=== PATIENT | female | born 1955 | race Caucasian/White ===

== ENCOUNTER 2021-02-09 10:39 | Inpatient (IN) | payer MEDICARE ==
[~2021-02-09] VITALS: Ht 160 cm; Wt 56.9 kg
[2021-02-09] MEDS ORDERED: HYDR1TAB94 PO (11:04)
[2021-02-09] MEDS ORDERED: MIRT15 PO (11:05)
[2021-02-09] MEDS ORDERED: MOBIC15 MG PO (11:05)
[2021-02-09] MEDS ORDERED: POTCHL20ER PO (11:06)
[2021-02-09 11:33] LABS: BASOPHILS ABSOLUTE AUTO 0.08 K/mm3 (0.00-0.23); BASOPHILS PERCENT AUTO 0 % (0-2); EOSINOPHILS PERCENT AUTO 0 % (0-6); Hematocrit 47.8 % (33.0-51.0); Hemoglobin 16.1 g/dL (11.5-16.0); IMMATURE GRAN ABSOLUTE AUTO 0.15 K/mm3 (0.00-0.10); IMMATURE GRAN PERCENT AUTO 1 % (0-1); LYMPHOCYTES PERCENT AUTO 3 % (21-46); MONOCYTES ABSOLUTE AUTO 0.67 K/mm3 (0.16-1.47); MONOCYTES PERCENT AUTO 4 % (4-13); Mean Corpuscular HGB 29.9 pg (26.0-34.0); Mean Corpuscular HGB Conc 33.7 g/dL (31.5-36.5); Mean Corpuscular Volume 89 fL (80-100); Mean Platelet Volume 10.4 fL (9.1-12.4); NEUTROPHILS ABSOLUTE AUTO 17.49 K/mm3 (1.96-9.15); NEUTROPHILS PERCENT AUTO 93 % (41-73); Platelet Count 237 K/mm3 (150-400); RDW Coefficient Variation 16.8 % (11.7-14.2); RDW Standard Deviation 54.2 fL (35.1-46.3); Red Blood Cell Count 5.39 M/mm3 (3.80-5.20); White Blood Cell Count 18.89 K/mm3 (4.00-11.30)
[2021-02-09 11:57] LABS: Alanine Aminotransfer (ALT/SGP 77 U/L (12-78); Albumin, Blood 2.8 g/dL (3.4-5.0); Albumin/Globulin Ratio 0.9 (0.8-1.8); Alk Phos 81 U/L (50-136); Anion Gap 6 mmol/L (6-16); Aspartate Aminotrans (AST/SGOT 30 U/L (12-37); Bilirubin, Total 0.9 mg/dL (0.1-1.0); Blood Urea Nitrogen 20 mg/dL (8-24); Bun/Creatinine Ratio 64.5 (12.0-20.0); CO2, Blood 28 mmol/L (21-32); Calcium, Blood 8.2 mg/dL (8.5-10.1); Chloride, Blood 106 mmol/L (98-108); Creatinine, Blood 0.31 mg/dL (0.40-1.00); Glomerular Filtration Rate >60 (60-); Glucose, Blood 204 mg/dL (70-99); Potassium, Blood 3.4 mmol/L (3.5-5.5); Sodium, Blood 140 mmol/L (136-145); Total Protein, Blood 5.8 g/dL (6.4-8.2); Troponin I 0.026 ng/mL (0.000-0.040)
[2021-02-09 13:39] LABS: Source, Urine Voided
[2021-02-09 13:49] LABS: Appearance, Urine Clear (Clear); Blood, Urine 1+ (Neg); Color, Urine Yellow (P-Yellow); Glucose Qualitative, Urine 4+ (Neg); Ketones, Urine 1+ (Neg); Leukocyte Esterase, Urine 1+ (Neg); Nitrite, Urine Neg (Neg); Protein, Urine 3+ (Neg); Specific Gravity, Urine 1.015 (1.003-1.022); Urobilinogen, Urine 2+ (Normal)
[2021-02-09 13:57] LABS: Bilirubin, Urine 1+ (Neg)
[2021-02-09 13:59] LABS: Bacteria Many /hpf; Red Blood Cells, Urine 0-2 /hpf (0-2); Squamous Epithelial Cells Few /hpf (Few)
[2021-02-09] MEDS ORDERED: MIRALAX17 GM PO (14:14)
[2021-02-09] MEDS ORDERED: METAMUCIL POWD575 GM PO (14:15)
[2021-02-09 15:58] LABS: SARS-Cov-2 (COVID-19) PCR, MMC NEGATIVE (NEGATIVE)
--- NOTE | 2021-02-09 19:25 | NUR ---
ASSUMPTION OF CARE PT TX TO ICU FROM ER @ 1900, MOVED TO ICU BED VIA SLIDER SHEET. PT A&OX4. C/O MODERATE ABDOMINAL PAIN WHICH IS TOLERABLE AT THIS TIME. LS DIMINISHED, ON 2LPM VIA NC UPON ADMIT c SATS >90%. FREQUENT UNPRODUCTIVE COUGHS. ABDOMEN MILDLY DISTENDED. EDEMA TO BLE, PT STATES THIS IS NOT NORMAL. A-FIB ON THE MONITOR, CARDIZEM GTT INFUSING @ 10MG/HR c GOAL HR OF 100BPM. PT VERY WEAK, STATES SHE NORMALLY WALKS/ MOVES WITHOUT ASSISTANCE. UNABLE TO GET UP TO BEDSIDE COMMODE, UTILIZING BEDPAN. PT NPO BUT FREQUENTLY REQUESTING WATER AND FOOD. CALL LIGHT WITHIN REACH.
--- NOTE | 2021-02-10 02:02 | NUR ---
UPDATE PTS PAIN IS CONTROLLED c PRN FENTANYL. ABLE TO STAND AND TRANSFER TO BESIDE COMMODE FOR BM. TOLERATING SLOW MOVEMENTS. A-FIB CONTINUES, NO CHANGES IN CARDIZEM GTT. WHILE SLEEPING PTS SATS DROP TO MID 80'S, PLACED ON OXIMYZER @ 10LPM c O2 SATS >95%. WHEN SATS MAINTAIN >95% c NC @ 2-4LPM.
[2021-02-10 03:23] LABS: BASOPHILS ABSOLUTE AUTO 0.04 K/mm3 (0.00-0.23); BASOPHILS PERCENT AUTO 0 % (0-2); Hematocrit 43.6 % (33.0-51.0); Hemoglobin 14.3 g/dL (11.5-16.0); LYMPHOCYTES ABSOLUTE AUTO 0.52 K/mm3 (0.84-5.20); LYMPHOCYTES PERCENT AUTO 3 % (21-46); MONOCYTES ABSOLUTE AUTO 0.75 K/mm3 (0.16-1.47); MONOCYTES PERCENT AUTO 4 % (4-13); Mean Corpuscular HGB Conc 32.8 g/dL (31.5-36.5); Mean Corpuscular Volume 91 fL (80-100); Mean Platelet Volume 10.3 fL (9.1-12.4); Platelet Count 173 K/mm3 (150-400); RDW Coefficient Variation 17.1 % (11.7-14.2); RDW Standard Deviation 57.3 fL (35.1-46.3); Red Blood Cell Count 4.77 M/mm3 (3.80-5.20); White Blood Cell Count 18.77 K/mm3 (4.00-11.30)
[2021-02-10 03:33] LABS: EOSINOPHILS PERCENT AUTO 0 % (0-6); IMMATURE GRAN ABSOLUTE AUTO 0.15 K/mm3 (0.00-0.10); IMMATURE GRAN PERCENT AUTO 1 % (0-1); NEUTROPHILS ABSOLUTE AUTO 17.31 K/mm3 (1.96-9.15); NEUTROPHILS PERCENT AUTO 92 % (41-73)
[2021-02-10 03:45] LABS: Alanine Aminotransfer (ALT/SGP 64 U/L (12-78); Albumin, Blood 2.6 g/dL (3.4-5.0); Albumin/Globulin Ratio 0.8 (0.8-1.8); Alk Phos 75 U/L (50-136); Anion Gap 1 mmol/L (6-16); Aspartate Aminotrans (AST/SGOT 24 U/L (12-37); Bilirubin, Total 0.7 mg/dL (0.1-1.0); Blood Urea Nitrogen 19 mg/dL (8-24); Bun/Creatinine Ratio 50.5 (12.0-20.0); CO2, Blood 33 mmol/L (21-32); Calcium, Blood 8.2 mg/dL (8.5-10.1); Chloride, Blood 109 mmol/L (98-108); Creatinine, Blood 0.38 mg/dL (0.40-1.00); Globulin, Blood 3.1 g/dL (2.2-4.0); Glomerular Filtration Rate >60 (60-); Glucose, Blood 208 mg/dL (70-99); Magnesium, Blood 1.7 mg/dL (1.6-2.4); Phosphorus, Blood 3.1 mg/dL (2.5-4.9); Potassium, Blood 3.9 mmol/L (3.5-5.5); Sodium, Blood 143 mmol/L (136-145); Total Protein, Blood 5.7 g/dL (6.4-8.2)
--- NOTE | 2021-02-10 06:13 | NUR ---
SHIFT SUMMARY PT A&OX4. OCCASIONAL NON-PRODUCTIVE COUGHING. OXYGEN REMAINS ABOVE 90%, SWAPPING BETWEEN NC @ 2-4LPM AND OXIMYZER @ 8-10LPM WHILE PT IS SLEEPING. A-FIB CONTINUES, RATE REMAINS ~100BPM c CARDIZEM @ 5MG/HR. PT REPORTS NO CHANGES IN ABDOMINAL PAIN, BUT PAIN IS CONTINUOUS OF 5-8/10, MEDICATED c PRN FENTANYL. BP STABLE. PT FREQUENTLY REQUESTING FOOD AND WATER, REMAINS NPO, PROVIDED ORAL SWAB WHEN REQUESTED. NO OTHER CHANGES, REPORT TO ONCOMING NURSE.
--- NOTE | 2021-02-10 08:00 | NUR ---
pt is agitated about lines and not being able to eat, wants ice chips, this was given, Dr. Curry in to see her early this am, said ice chips ok, and will let bowels rest at this time, a/ox3, cooperative with care, follows commands well, states pain is ok, but abd is very tender, lungs are course, dim in left base, resp even and unlabored, harsh wet cough, she reports she can't bring it up, currently on 4 liters 02 via oxymizer, as she needs 10 while sleeping, hrirr, heart moniotor in place running afib per monitor, see strip, 2+ edema noted to b/l le, scuds in place, ppp+2, cap refill <3sec, vs stable, afebrile, iv sites are clear and patent, one on right fa is tender when flushed, btx4, abd round soft tender, all four quads, voids without diff, skin c/w/d, maew, mackenzie, call light in reach.
--- NOTE | 2021-02-10 11:04 | NUR ---
notified Dr. Vail of + B.C[facility] no new orders.
--- NOTE | 2021-02-10 11:57 | NUR ---
Echocardiogram completed.
--- NOTE | 2021-02-10 17:57 | NUR ---
pt is continuing to ask about eating and how long until we know. offered encouragement, encouraged her to go very slow with ice chips, no further changes this shift, call light in reach.
--- NOTE | 2021-02-10 21:59 | NUR ---
ASSUMED CARE OF PATIENT AT APPROXIMATELY 1905 FROM MICHAEL Song RN. PATIENT IS VERY ANXIOUS; IRRITABLE AT TIMES. PATIENT REPORTS PAIN IN HER ABDOMEN AND BACK; MEDICATED PER EMAR WITH GOOD RESULTS. PATIENT ONE ASSIST TO BEDSIDE COMMODE OR USES BEDPAN; FREQUENCY DUE TO IV LASIX GIVEN EARLIER TODAY PER DAYSHIFT. AFIB 90-130'S; CARDIZEM GTT 5-10; CURRENTLY 5; WITH AVERAGE IN 90'S; NPO AT THIS TIME EXCEPT FOR ICE CHIPS; PATIENT IRRITABLE ABOUT NOT EATING. OXYGEN SATURATION ABOVE 90% ON 10LPM VIA OXYMIZER; NONPRODUCTIVE COUGH; REPORTS SHE CANT BRING ANYTHING UP. PATIENT DENIES NUMBNESS, TINGLING, DIZZINESS OR NAUSEA. 2 PIV.
[2021-02-11 04:17] LABS: BASOPHILS ABSOLUTE AUTO 0.04 K/mm3 (0.00-0.23); BASOPHILS PERCENT AUTO 0 % (0-2); EOSINOPHILS ABSOLUTE AUTO 0.01 K/mm3 (0.00-0.68); EOSINOPHILS PERCENT AUTO 0 % (0-6); Hematocrit 43.7 % (33.0-51.0); Hemoglobin 14.3 g/dL (11.5-16.0); IMMATURE GRAN PERCENT AUTO 1 % (0-1); LYMPHOCYTES ABSOLUTE AUTO 0.59 K/mm3 (0.84-5.20); LYMPHOCYTES PERCENT AUTO 4 % (21-46); MONOCYTES ABSOLUTE AUTO 0.84 K/mm3 (0.16-1.47); MONOCYTES PERCENT AUTO 6 % (4-13); Mean Corpuscular HGB 29.4 pg (26.0-34.0); Mean Corpuscular HGB Conc 32.7 g/dL (31.5-36.5); Mean Corpuscular Volume 90 fL (80-100); Mean Platelet Volume 10.3 fL (9.1-12.4); NEUTROPHILS ABSOLUTE AUTO 13.34 K/mm3 (1.96-9.15); NEUTROPHILS PERCENT AUTO 89 % (41-73); Platelet Count 198 K/mm3 (150-400); RDW Coefficient Variation 16.4 % (11.7-14.2); Red Blood Cell Count 4.86 M/mm3 (3.80-5.20); White Blood Cell Count 15.02 K/mm3 (4.00-11.30)
[2021-02-11 04:38] LABS: Anion Gap 6 mmol/L (6-16); Blood Urea Nitrogen 19 mg/dL (8-24); Bun/Creatinine Ratio 53.1 (12.0-20.0); CO2, Blood 33 mmol/L (21-32); Chloride, Blood 104 mmol/L (98-108); Creatinine, Blood 0.36 mg/dL (0.40-1.00); Glomerular Filtration Rate >60 (60-); Glucose, Blood 174 mg/dL (70-99); Potassium, Blood 2.4 mmol/L (3.5-5.5); Sodium, Blood 143 mmol/L (136-145)
--- NOTE | 2021-02-11 06:09 | NUR ---
CALLED DR. BUTLER REGARDING POTASSIUM CRITICALLY LOW AT 2.4; ORDERS FOR IV POTASSIUM; CURRENTLY INFUSING. PATIENT SLEPT ABOUT SEVEN HOURS LAST NIGHT. INCONTINENT OF STOOL ONCE AND UP TO URINATE OR USED BEDPAN FREQUENTLY. CARDIZEM 5-10 MG/HR ALL NIGHT.
--- NOTE | 2021-02-11 16:44 | NUR ---
PT SUMMARY: PT CONTINUES TO C/O OF ABD PAIN, PAIN CONTROLLED VIA IV FENTANYL. DR MCKEON PLAN TO CONTINUE MEDICAL MANAGEMENT AND BOWEL REST AT THIS TIME, PT HAD EPISODES OF SMALL LOOSE BMS, PT REMAINS ALERT AND ORIENTED, GETS IRRITATED OFTEN TIMES, REFUSES TO GET BP DONE BEFORE THE END OF THE SHIFT AND SWAB FOR RESPI PANEL. VITALS BP SYSTOLIC 120'S, HR AFIB CARDIZEM AND METOPROLOL PO STARTED CARDIZEM GTT OFF RATE STAYS ON THE 110'S, SPO2 ABOVE 93% ON 9L OF O2 VIA OXYMIZER, AFEBRILE. PT CONINUES ON IV ABO, SBA FRO TRANSFERS. SON WAS IN TO VISIT AND WAS ABLE TO HAVE DISCUSSION WITH DR MCKEON ABOUT THE PLAN FOR THE PT. PT IN BED AT THIS TIME RESTING. CALL LIGHTS WITHIN REACH WILL HOMAR
[2021-02-11 19:19] LABS: Adenovirus Not Detected (NOT DETECT); Bordetella pertussis Not Detected (NOT DETECT); Chlamydophila pneumoniae Not Detected (NOT DETECT); Coronavirus 229E Not Detected (NOT DETECT); Coronavirus HKU1 Not Detected (NOT DETECT); Coronavirus NL63 Not Detected (NOT DETECT); Coronavirus OC43 Not Detected (NOT DETECT); Human Metapneumovirus Not Detected (NOT DETECT); Human Rhinovirus/Enterovirus Not Detected (NOT DETECT); Influenza A/2009-H1 Not Detected (NOT DETECT); Influenza A/H1 Not Detected (NOT DETECT); Influenza A/H3 Not Detected (NOT DETECT); Influenza B Not Detected (NOT DETECT); Mycoplasma pneumoniae Not Detected (NOT DETECT); Parainfluenza Virus 1 Not Detected (NOT DETECT); Parainfluenza Virus 2 Not Detected (NOT DETECT); Parainfluenza Virus 3 Not Detected (NOT DETECT); Parainfluenza Virus 4 Not Detected (NOT DETECT); Respiratory Syncytial Virus Not Detected (NOT DETECT); SARS-Cov-2 (COVID-19), BioFire Not Detected (NOT DETECT)
--- NOTE | 2021-02-11 23:28 | NUR ---
PT HAS FREQUENT URINATION WELL WATERY STOOLS. PT REPORTS ABDOMINAL PAIN. PT IS A BIT AGITATED AND WANTS TO BE UNDISTURBED UNTIL SHE NEEDS ASSISTANCE.
[2021-02-12 04:08] LABS: Hemoglobin 15.8 g/dL (11.5-16.0); Mean Corpuscular HGB 30.2 pg (26.0-34.0); Mean Corpuscular HGB Conc 33.6 g/dL (31.5-36.5); Mean Corpuscular Volume 90 fL (80-100); Mean Platelet Volume 10.5 fL (9.1-12.4); Platelet Count 214 K/mm3 (150-400); RDW Standard Deviation 52.7 fL (35.1-46.3); Red Blood Cell Count 5.23 M/mm3 (3.80-5.20); White Blood Cell Count 18.16 K/mm3 (4.00-11.30)
[2021-02-12 04:26] LABS: Anion Gap 8 mmol/L (6-16); Blood Urea Nitrogen 14 mg/dL (8-24); Bun/Creatinine Ratio 46.4 (12.0-20.0); CO2, Blood 33 mmol/L (21-32); Calcium, Blood 7.7 mg/dL (8.5-10.1); Chloride, Blood 100 mmol/L (98-108); Glomerular Filtration Rate >60 (60-); Glucose, Blood 172 mg/dL (70-99); Potassium, Blood 2.7 mmol/L (3.5-5.5); Sodium, Blood 141 mmol/L (136-145)
--- NOTE | 2021-02-12 04:39 | NUR ---
SHIFT SUMMARY PT IS ALERT AND ORIENTED X4. PT SEEMS TO BE AGITATED AT TIMES, STS THAT SHE CANNOT GET SLEEP DUE TO BEEPING AND CARE. PT HAS BEEN INFUSING FLUIDS ALL NIGHT AND THERE WAS NEED TO GO INTO THE ROOM. PT HAS ALSO HAD SEVERAL WATERY STOOLS AND FREQUENT URINATION. THERE HAVE BEEN NO ACUTE CHANGES AND VITALS HAVE BEEN STABLE. PT DENIES CHEST PAIN OR SOB AND IS ON 6L OXYMIZER WITH SATS GREATER THAN 90%. CALL LIGHT IS WITHIN REACH.
--- NOTE | 2021-02-12 09:10 | NUR ---
PT ALERT AND ORIENTED X4. ANSWERING CARE QUESTIONS APPROPRIATELY. LUNGS SOUNDING COARSE. ON 6L OXYMIZER SATING MID 90'S. INCENTIVE SPIROMETER AND PICKLE EDUCATION/ENCOURAGEMENT. TELE SHOWING AFIB WITH HR 110-120'S. CARDIZEM DRIP IS OFF. PO CARDIZEM GIVEN THIS AM. WILL CONTINUE TO MONITOR HR. BOWEL TONES HYPOACTIVE. ABDOMEN TENDER AND PAINFUL WHEN MOVING. FREQUENT WATERY STOOLS. SPOKE WITH DR. MCKEON THIS AM, ADVANCED TO CLEAR LIQUID DIET, WILL CONTINUE TO MONITOR. POTASSIUM INFUSING, WILL RECHECK POTASSIUM LEVEL AND MAG PER DR. NDIAYE AFTER INFUSION. ZOSYN INFUSING WELL. CALL LIGHT IN REACH. CALLING APPROPRIATELY. WILL CONTINUE TO MONITOR.
[2021-02-12 11:08] LABS: Magnesium, Blood 1.8 mg/dL (1.6-2.4); Potassium, Blood 2.6 mmol/L (3.5-5.5)
--- NOTE | 2021-02-12 12:00 | NUR ---
PT SLEEPING AT THIS TIME. TOLERATING CLEAR LIQUIDS THUS FAR. CHICKEN BROTH AND JELLO FOR LUNCH. PHYSICAL THERAPY IN TO WORK WITH PATIENT. PATIENT SITTING UP ON EDGE OF BED. WORKING WITH INCENTIVE SPIROMETER AND PICKLE. WILL CONTINUE TO ENCOURAGE. HR LOW 100'S. POTASSIUM EARLIER 2.6, NEW ORDERS FOR 40 MEQ PO. RECHECKING K AROUND 1430 TO REASSESS. WILL CONTINUE TO MONITOR.
--- NOTE | 2021-02-12 18:04 | NUR ---
SHIFT SUMMARY: CALL PLACED TO DR. NDIAYE ABOUT PATIENT HR. CARDIZEM CHANGED TO IMMEDIATE RELEASE 60MG Q6 STARTING NOW. BP STABLE. CONTINUES TO HAVE FREQUENT LOOSE STOOLS. TOLERATING CLEAR LIQUID DIET AT THIS TIME. ANTIBIOTICS INFUSING. PT STATES ABDOMINAL PAIN IMPROVING. WILL CONTINUE TO MONITOR AND REPORT OFF.
--- NOTE | 2021-02-12 18:42 | NUR ---
TRANSFER: PATIENT WILL BE TRANSFERRING OVER TO PCU 6. WILL GIVE REPORT TO PCU WAFER ABRADING MACHINE TENDER NURSE THEN TRANSFER OVER. PT AWARE OF PLAN. AT THIS TIME DENIES NEEDS.
--- NOTE | 2021-02-12 20:25 | NUR ---
CALLED VANDANA SALCIDO TO REPORT PATIENT'S POTASSIUM OF 2.6; ORDERS FOR 80MEQ IV POTASSIUM AND 40MEQ PO POTASSIUM
--- NOTE | 2021-02-12 21:30 | NUR ---
ASSUMED CARE OF PATIENT AT [place] [id number] FROM NOLA Contreras RN. PATIENT TRANSFER FROM ICU2 TO PCU6; PATIENT TRANSFER VIA SLIDE SHEET AND MAX ASSIST. PATIENT REPORTS SHE IS TOO WEAK TO GET UP. LIFTS HIPS TO USE BEDPAN WITH FREQUENT LOOSE BMS. PATIENT DENIES PAIN, NUMBNESS, TINGLING, DIZZINESS OR NAUSEA. AFIB ON TELE; HEART RATE INCREASES W/ MOVEMENT; OXYGEN SATURATION ABOVE 90% ON 6LPM VIA OXYMIZER. ATTENDS IN PLACE FOR INCONTINENCE OF STOOL. POTASSIUM INFUSING PER ORDER. IRRITABLE AT TIMES.
--- NOTE | 2021-02-13 06:21 | NUR ---
POTASSIUM 4.1 THIS AM; DIARRHEA SLOWED DOWN; PATIENT SLEPT ABOUT EIGHT HOURS LAST NIGHT; COMPLAINED OF ABDOMINAL PAIN TWICE; MEDICATED PER EMAR. HEART RATE TRENDED UP WITH ANY MOVEMENT; PATIENT REPORTS SHE CAN ONLY USE BEDPAN DUE TO WEAKNESS AND PAIN; INCONTINENT OF STOOL MULTIPLE TIMES.
[2021-02-13 10:01] LABS: BASOPHILS ABSOLUTE AUTO 0.06 K/mm3 (0.00-0.23); BASOPHILS PERCENT AUTO 0 % (0-2); EOSINOPHILS PERCENT AUTO 0 % (0-6); Hematocrit 46.6 % (33.0-51.0); Hemoglobin 15.6 g/dL (11.5-16.0); IMMATURE GRAN ABSOLUTE AUTO 0.24 K/mm3 (0.00-0.10); IMMATURE GRAN PERCENT AUTO 2 % (0-1); LYMPHOCYTES ABSOLUTE AUTO 0.35 K/mm3 (0.84-5.20); LYMPHOCYTES PERCENT AUTO 2 % (21-46); MONOCYTES ABSOLUTE AUTO 0.98 K/mm3 (0.16-1.47); MONOCYTES PERCENT AUTO 7 % (4-13); Mean Corpuscular HGB Conc 33.5 g/dL (31.5-36.5); Mean Corpuscular Volume 90 fL (80-100); Mean Platelet Volume 10.6 fL (9.1-12.4); NEUTROPHILS PERCENT AUTO 89 % (41-73); Platelet Count 220 K/mm3 (150-400); RDW Standard Deviation 52.9 fL (35.1-46.3); White Blood Cell Count 14.33 K/mm3 (4.00-11.30)
[2021-02-13 10:18] LABS: Albumin, Blood 2.4 g/dL (3.4-5.0); Anion Gap 9 mmol/L (6-16); Blood Urea Nitrogen 17 mg/dL (8-24); Bun/Creatinine Ratio 54.7 (12.0-20.0); CO2, Blood 29 mmol/L (21-32); Calcium, Blood 8.2 mg/dL (8.5-10.1); Chloride, Blood 103 mmol/L (98-108); Creatinine, Blood 0.31 mg/dL (0.40-1.00); Glomerular Filtration Rate >60 (60-); Glucose, Blood 244 mg/dL (70-99); Phosphorus, Blood 1.9 mg/dL (2.5-4.9); Potassium, Blood 3.1 mmol/L (3.5-5.5); Sodium, Blood 141 mmol/L (136-145)
--- NOTE | 2021-02-13 18:24 | NUR ---
SHIFT SUMMARY PT HAS BEEN URINATING FREQUENTLY TODAY. PT REPORTED HAVING PAIN THIS MORNING IN HER ABDOMEN, HER PAIN MEDICATION WAS SWITCHED TO MATCH HER HOME NORCO PRESCRPTION AND THAT HAS SEEMED TO GIVE HER ADEQUATE PAIN COVERAGE THROUGHOUT THE DAY. PT HAS REMAINED ON 6L O2 VIA OXYMIZER TO MAINTAIN SATURATION. PT HAS CLINIMIX RUNNING AT THIS TIME FOR IV NUTRITION SHE IS STRUGGLING TO ADVANCE HER DIET, SHE REPORTS PAIN INCREASED WITH INTAKE. PT WAS HAVING FREQUENT LOOSE STOOL REPORTED FROM NOC SHIFT ON 02/12/21 HOWEVER, SHE HAS NOT HAD ANY TODAY ON DAY SHIFT 02/13/21. VS STABLE, PT IS RESTING IN BED AT THIS TIME
--- NOTE | 2021-02-14 06:34 | NUR ---
SHIFT SUMMARY PATIENT A&OX4, ANXIOUS AT TIMES WITH GEN WEAKNESS. ON 5L OXYMIZER SATING MID 90'S. CHRONIC DRY COUGH. TACHYPENIC AT TIMES. VSS. SR WITH PVC'S AND MAT ALL SHIFT FROM 90'S-120'S. EVEN HIGHER IF MOVING. NO CP OR PRESSURE NOTED. NORCO Q4H AROUND THE CLOCK FOR CHRONIC PAIN TO KEEP AT TOLERABLE LEVEL OF 8. USING BEDPAN TO VOID. TOLERATING CLD. MODERATELY DISTENDED ABDOMEN AND NO BM THIS SHIFT. PASSING GAS OK STILL. NO ACUTE CONCERNS AT THIS TIME. WILL CONTINUE TO MONITOR UNTIL REPORT GIVEN TO DEREJE SHARMA.
[2021-02-14 10:01] LABS: Anion Gap 9 mmol/L (6-16); Blood Urea Nitrogen 22 mg/dL (8-24); Bun/Creatinine Ratio 63.8 (12.0-20.0); CO2, Blood 32 mmol/L (21-32); Calcium, Blood 8.1 mg/dL (8.5-10.1); Chloride, Blood 97 mmol/L (98-108); Creatinine, Blood 0.35 mg/dL (0.40-1.00); Glomerular Filtration Rate >60 (60-); Glucose, Blood 342 mg/dL (70-99); Potassium, Blood 2.6 mmol/L (3.5-5.5); Sodium, Blood 138 mmol/L (136-145)
--- NOTE | 2021-02-14 12:04 | NUR ---
TRANSFER TO 230 SURGICAL PT WAS TRANSFERRED TO THE SURGICAL UNIT AT APPROXMIATELY 1155. PT WAS TRANSFERRED WITH ALL PERSONAL BELONGINGS, ON 6L O2 VIA OXYMIZER. REPORT WAS GIVEN TO Valerie MURILLO RN. PT HAS LOW POTASSIUM AND DR DOLL ORDERED BOTH IV AND PO POTASSIUM TO GIVE TO THE PT. PT WAS ALERT AND ORIENTED AND VS STABLE UPON TRANSFER.
--- NOTE | 2021-02-14 13:53 | NUR ---
Met pt. in bed relaxed she reports doing much better encouraged and offered prayers.
--- NOTE | 2021-02-14 16:55 | NUR ---
Supportiv visit this afternoon. Spoke with PT Tyler and discussed case. Pt may benefit from benefit from further pain management. Pt resting in bed upon arrival. Pt reports 10/10 pain in her stomach and also reports significant pain in her left leg. Pt reports struggling with receiving adequate sleep and rest since being in the hospital. Continued therapeutic listening and validated concerns. Pt is requesting to sleep and rest at this time. Pt is agreeable for pain regimen adjustment if appropriate. This RN ended visit to allow Pt to rest. Called and spoke with hospital Pharmacist Meghan and discussed pain management options. Meghan recommends switching Pt's regimen to Percocet and re assess in 24 hours to determine if Pt may benefit from long acting pain regimen. Called and spoke with Dr Monique. Placed order for Percocet 5/325mg 1-2 tabs Q 4 hours PRN for pain and D/C Pt's [place] per Dr Monique's V/O. Spoke with Pt's primary RN Ed and discussed case. Palliative Care will remain available for symptom management and supportive visits.
--- NOTE | 2021-02-14 19:41 | NUR ---
SHIFT SUMMARY PATIENT TRANSFER FROM PCU. ALERT, ORIENTED, AND ANXIOUS THORUGHOUT SHIFT. TOLERATING CLEARS. SOME ABD PAIN AND CRAMPING. FREQUENT URINATION ON BED [place], SOME LIQUID STOOLS. RAPID HR AND RR. 6 L O2 VIA OXYMIZER. THIS WAS TURNED UP TO 10 L VIA OXYMIZER TO KEEP O2 SATS ABOVE 90%. TACHY ON TELE, PROGRESSIVELY INCREASING FROM 120S TO 130S. REPORT GIVEN TO HARD ROCK DRILL OPERATOR RN.
--- NOTE | 2021-02-14 19:42 | NUR ---
HR: PT HR INCREASING UP TO 180 (AFIB) PER TELE MONITOR. HR TRENDING 130-160'S W/MILD EXERTION. TRENDING 1'TEENS AT REST. PER PRIMARY RN, PT REP FEELING ANXIOUS, BUT DENIES CP/PRESSURE. PT REP SOB, SATS LOW 90'S VIA 10L OXYMIZER. RT IN TO ASSESS PT. CALL PLACED TO DR LAURENT. PT VITALS AND STATUS AND PREV+CURRENT MED ORDERS REVIEWED W/MD. NEW ORDER FOR PETRONA BROWN REC. PRIMARY RN UPDATED. PLAN TO NOTIFY MD IF NO IMPROVEMENT OR FOR ADDITIONAL CONCERNS.
--- NOTE | 2021-02-14 21:19 | NUR ---
PT HR TRENDING 130-165 AFTER PO CARDIZEM GIVEN. SATS 88-89% ON 15L OXYMIZER. DR LAURENT UPDATED. NEW ORDER TO TX PT TO ICU PCU STATUS W/CARDIZEM GTT.
--- NOTE | 2021-02-14 22:10 | NUR ---
Report called to marianne weaver. in ICU. Pt was transferred to ICU 2 at 2210. Pt aox4. REPORTS ABD PAIN. PAIN MANAGED WITH 50MG FENTANYL. PT ON TELE, REMAIN ON MAT AT 130'S-150'S PER RAMILA. PT WAS ON OXIMEZER 15L SATURATING AT 91%. CARDIZEM PO WAS GIVEN TO PT DURING MY SHIFT X1. SARAI CHARGE NURSE ASSIST IN CALLING THE HOSPITALIST.
--- NOTE | 2021-02-15 00:42 | NUR ---
PATIENT ADMITTED TO ICU FROM SURGICAL FLOOR AT APPROXIMETLY 2220. HR IRREGULAR SINUS WITH MAT IN THE 130'S-170'S. BP ELEVATED WELL AND PATIENT STARTED ON CARDIZEM DRIP AFTER BOLUS GIVEN PER ORDER. VSS. HR CURRENTLY 115 WITH DRIP TITRATED UP TO 15MG/HR. PATIENT HIGHLY ANXIOUS DURING TRANFER AND MD DR. OCHOA SAW AT BEDSIDE. ORDERED IV ATIVAN 0.5-1MG Q4H AND GIVEN WITH GOOD RELIEF. PATIENT RESTING COMFORTABLY IN BED. WILL CONTINUE TO MONITOR.
[2021-02-15 04:08] LABS: Anion Gap 7 mmol/L (6-16); Blood Urea Nitrogen 24 mg/dL (8-24); Bun/Creatinine Ratio 75.2 (12.0-20.0); CO2, Blood 33 mmol/L (21-32); Chloride, Blood 103 mmol/L (98-108); Creatinine, Blood 0.32 mg/dL (0.40-1.00); Glomerular Filtration Rate >60 (60-); Glucose, Blood 338 mg/dL (70-99); Magnesium, Blood 1.7 mg/dL (1.6-2.4); Potassium, Blood 3.2 mmol/L (3.5-5.5); Sodium, Blood 143 mmol/L (136-145)
--- NOTE | 2021-02-15 06:13 | NUR ---
SHIFT SUMMARY SEE PREVIOUS NOTE FOR TRANSFER DETAILS. A&OX4 AND VERY ANXIOUS/RESTLESS IN BED. PATIENT REMAINS ON AIRVO 50L, 88%FIO2 SATING LOW 90'S. TACHYPENIC. ATIVAN IV GIVEN WITH MUCH IMPROVEMENT TO ANXIETY AND WOB. CONTINUES CARDIZEM DRIP 15MG/HR WITH NOT MUCH CHANGE WITH VITALS. STILL WITH MAT IN THE 110'S-140'S AT TIMES. FREQUENT PVC'S. NO COMPLAINTS OF CP OR PRESSURE. BP ON THE HIGH SIDE. ABD PAIN CONTINUES AND REFUSES TURNS AND OTHER CARE AT TIMES R/T THIS. PRN FENTANYL Q4H KEEPING AT TOLERABLE LEVEL. USING BEDPAN TO VOID. HR INCREASE WITH ANY ACTIVITY. CLINAMIX AND IV ABX RUNNING PER ORDER. NO ACUTE CONCERNS AT THIS TIME. WILL CONTINUE TO MONITOR UNTIL REPORT GIVEN TO DAYSHIFT RN.
[2021-02-15 08:42] LABS: Source, Urine Catheter
[2021-02-15 09:05] LABS: Hematocrit 53.5 % (33.0-51.0); Hemoglobin 17.8 g/dL (11.5-16.0); Mean Corpuscular HGB 29.8 pg (26.0-34.0); Mean Corpuscular HGB Conc 33.3 g/dL (31.5-36.5); Mean Corpuscular Volume 90 fL (80-100); Platelet Count 232 K/mm3 (150-400); Red Blood Cell Count 5.97 M/mm3 (3.80-5.20); White Blood Cell Count 13.63 K/mm3 (4.00-11.30)
[2021-02-15 09:11] LABS: Appearance, Urine Clear (Clear); Bilirubin, Urine Neg (Neg); Blood, Urine 1+ (Neg); Color, Urine Yellow (P-Yellow); Glucose Qualitative, Urine 4+ (Neg); Ketones, Urine 3+ (Neg); Leukocyte Esterase, Urine Neg (Neg); Nitrite, Urine Neg (Neg); Protein, Urine 1+ (Neg); Urobilinogen, Urine NORM (Normal)
[2021-02-15 09:30] LABS: Bacteria Rare /hpf; Squamous Epithelial Cells Rare /hpf (Few); White Blood Cells, Urine 0-2 /hpf (0-5)
[2021-02-15 09:56] LABS: BAND PERCENT MAN 31 % (0-8); BASOPHILS PERCENT MAN 0 % (0-2); EOSINOPHILS PERCENT MAN 0 % (0-6); METAMYELOCYTE ABSOLUTE MAN 0.13 K/mm3 (0.00-0.00); METAMYELOCYTE PERCENT MAN 1 % (0-0); MONOCYTES ABSOLUTE MAN 0.68 K/mm3 (0.16-1.47); MONOCYTES PERCENT MAN 5 % (4-13); MYELOCYTE ABSOLUTE MAN 0.13 K/mm3 (0.00-0.00); MYELOCYTE PERCENT MAN 1 % (0-0); NEUTROPHILS ABSOLUTE MAN 12.67 K/mm3 (1.96-9.15); SEG NEUTROPHILS PERCENT MAN 62 % (41-73); TOTAL CELLS COUNTED 100
--- NOTE | 2021-02-15 11:40 | NUR ---
Spoke with Primary RN Claudine and discussed case. Pt reporting that she does not want another CT scan and states she was ready to go upstairs pointing to the ceiling. Pt resting in bed upon arrival. Pt reports pain but does not report intensity of pain. FLACC score 4/10 as evidenced by facial grimmacing, tense body, and constant movement of her head. Discussed statemennt made to primary RN and asked Pt to elaborate. Pt reports she does not feel another CT scan will change anything and she wants to go to [facility] due to her significant discomfort. Pt reports feeling hot as well. Obtained bedside table fan for Pt. She reports fan is helping. Spoke with Primary RN Claudine and reviewed medications. Claudine will offer low dose Ativan to assist with comfort. Plan: Will attempt better symptom management. If Pt's wishes remain the same, family meeting may be beneficial to discuss goals of care.
--- NOTE | 2021-02-15 12:30 | NUR ---
TRANSFER NOTE ASSUMED CARE OF PATEINT THIS AM AT 0700. PT ALERT, ORIENTED x3; ANXIOUS AND FEARFUL, RESISTANT TO CARE. PT RESTING IN BED. PT REPORTS INCREASED ABD PAIN, MEDICATED x1 PER EMAR, LATER IN THE AM PT REFUSING PAIN MEDCIATIONS, STATES SHE DOES NOT WANT ANYTHING AT THIS TIME. PT SOB WITH EXERTION, SPO2 >90% ON AIRVO AT 50L AND FIO2 80%. PT REPORTS NAUSEA, MEDCIATED PER EMAR. NOTIFIED DR DOLL OF AM GLUCOSE NEW ORDERS FOR CBG AND INSULIN ENTERED, EDUCATED PT ON GLUCISE LEVELS AND INSULIN, PT FEARFUL AND RESISTANT TO CARE; PT EVENTUALLY AGREED TO ALLOW INSULIN. DR MCKEON ORDER CT PE STUDY AND CT ABD/PELVIC, PT REFUSING TO GO FOR IMAGING, STATES" IM DONE, I JUST WANT TO GO" PT POINT UP. NOTIFIED LEATHA IN PALLEATIVE CARE, LEATHA TO ROOM TO DISCUSS OPTIONS. BP AND HR ELEVATED THIS AM, MEDCIATED WITH SCHEDULED LOPRESSOR, THIS AFTERNOON TITRATED CARDIZEM HR 80-90'S. OTHER VSS. REPORT GIVNE TO RN ASSUMING CARE OF PATIENT. PT TRANSFERED TO ROOM PCU2 AT 1226.
--- NOTE | 2021-02-15 14:41 | NUR ---
PT TRANSFERRED TO PCU 2 FROM ICU 2 REPORT RECEIVED FROM LISA SHARMA. PT ON 50% AIRVO, WAS REFUSING HER CAT SCAN AND INSULIN CURRENTLY NOW HAVING CONVERSATION WITH THE PALLIATIVE CARE NURSE LEATHA SHARMA AND THE SON AND DAUGHTER IN LAW TO SUPPORT AND MAKE DECISIONS REGARDING PT'S PLAN OF CARE. PT INSISTING SHE WANTS TO BE "DONE", DONT WANT TO GET POKE DONT WANT ANYMORE TESTS AND BE PAIN FREE. FAMILY IN THE ROOM OF THIS TIME.
--- NOTE | 2021-02-15 14:57 | NUR ---
Multiple visits today with Pt. Pt continues to express her wishes to not undergo anymore imaging and lab testing. Discussed considering comfort care and involving family with decisions. Pt calls daughter in law Le and places her on speaker phone. Le reports her and Pt's son will be arriving soon. This RN did not discuss anything over the phone and instructed family conversation can take place when they arrive. Family is agreeable. Pt continues to experience pain and anxiety. RN Kimi to offer pain and anxiety medication. After this RN left Pt took her AIRVO NC off twice. Pt's son Danny and daughter in law Le arrive. Pt resting with her eyes closed and appears comfortable. Family did not want to disturb her at this time. Provided update and reviewed plan of care. Discussed with family that Pt has been expressing her wishes for no further treatment. Discussed options for treatment including further imaging planned to determine correct treatment and the option for comfort care. Educated on comfort care philosophy. Family tearful and this RN offered emotional support. Son Danny will call other family and attempt to awake Pt after processing information to discuss further. Palliative Care will remain available.
[2021-02-16 03:39] LABS: BASOPHILS ABSOLUTE AUTO 0.07 K/mm3 (0.00-0.23); BASOPHILS PERCENT AUTO 1 % (0-2); Hematocrit 49.8 % (33.0-51.0); Hemoglobin 16.3 g/dL (11.5-16.0); LYMPHOCYTES ABSOLUTE AUTO 0.48 K/mm3 (0.84-5.20); LYMPHOCYTES PERCENT AUTO 4 % (21-46); MONOCYTES ABSOLUTE AUTO 0.45 K/mm3 (0.16-1.47); MONOCYTES PERCENT AUTO 4 % (4-13); Mean Corpuscular HGB 29.6 pg (26.0-34.0); Mean Corpuscular HGB Conc 32.7 g/dL (31.5-36.5); Mean Corpuscular Volume 90 fL (80-100); Mean Platelet Volume 10.6 fL (9.1-12.4); Platelet Count 198 K/mm3 (150-400); RDW Coefficient Variation 15.5 % (11.7-14.2); RDW Standard Deviation 51.8 fL (35.1-46.3); Red Blood Cell Count 5.51 M/mm3 (3.80-5.20); White Blood Cell Count 10.96 K/mm3 (4.00-11.30)
[2021-02-16 03:40] LABS: EOSINOPHILS PERCENT AUTO 0 % (0-6); IMMATURE GRAN ABSOLUTE AUTO 0.14 K/mm3 (0.00-0.10); IMMATURE GRAN PERCENT AUTO 1 % (0-1); NEUTROPHILS ABSOLUTE AUTO 9.82 K/mm3 (1.96-9.15); NEUTROPHILS PERCENT AUTO 90 % (41-73)
[2021-02-16 03:58] LABS: Anion Gap 4 mmol/L (6-16); Blood Urea Nitrogen 33 mg/dL (8-24); Bun/Creatinine Ratio 102.2 (12.0-20.0); CO2, Blood 37 mmol/L (21-32); Calcium, Blood 8.4 mg/dL (8.5-10.1); Chloride, Blood 101 mmol/L (98-108); Creatinine, Blood 0.32 mg/dL (0.40-1.00); Glomerular Filtration Rate >60 (60-); Glucose, Blood 261 mg/dL (70-99); Potassium, Blood 3.3 mmol/L (3.5-5.5); Sodium, Blood 142 mmol/L (136-145)
--- NOTE | 2021-02-16 05:04 | NUR ---
SHIFT SUMMARY NO ACUTE CHANGES THIS SHIFT. PT A&OX4. SP02>90% ON AIRVO, 50L. TELEMETRY READS AFIB, HR 80'S-130'S. CARDIZEM INFUSING PER EMAR. PT C/O OF 06/23 ABD PAIN, MEDICATED W/ FENTANYL PER EMAR X1. PT STATED PRIOR TO PAIN MEDS THAT "I CANT DO THIS ANYMORE" "I WANT TO BE DONE". CLINIMIX INFUSED PER EMAR. ABX INFUSED PER EMAR. FAMILY IN ROOM AT BEGINNING OF SHIFT, DR MCKEON IN ROOM TO DISCUSS PT SCAN RESULTS. REES CATHETER DRAINING STAINING, YELLOW URINE, TO GRAVITY. NO BM THIS SHIFT. CALL LIGHT IN REACH. WILL GIVE REPORT TO ONCOMING NURSE.
[2021-02-16 05:53] LABS: BAND PERCENT MAN 16 % (0-8); BASOPHILS PERCENT MAN 0 % (0-2); EOSINOPHILS PERCENT MAN 0 % (0-6); LYMPHOCYTES PERCENT MAN 1 % (21-46); MONOCYTES PERCENT MAN 1 % (4-13); NEUTROPHILS ABSOLUTE MAN 10.63 K/mm3 (1.96-9.15); SEG NEUTROPHILS PERCENT MAN 81 % (41-73); TOTAL CELLS COUNTED 81
--- NOTE | 2021-02-16 10:36 | NUR ---
Spoke with Pt's primary RN Cassi prior to Pt visit and discussed case. Pt requiring significant oxygen support at this time. Pt resting in bed upon arrival. Pt appears dyspneic as evidenced by repiratory effort and ability to verbally respond with only one word answers. Pt appears lethargic and tense. Ended visit to allow Pt to rest. Spoke with Dr Monique and discussed case. Pt has devloped a significant pleural effusion and will discussed case with surgeon. Goals of care discussion with family may be beneficial once options have been determined. Called and spoke with Pt's son Danny. He reports original plan was to visit during visiting hours but can come sooner. Danny is currently in [place] and will plan to leave soon. He will call once he is close to [place]. Palliative Care will F/U when family arrives.
[2021-02-16 11:15] LABS: International Normalized Ratio 1.64; Prothrombin Time Results 17.2 Sec (9.7-11.5)
--- NOTE | 2021-02-16 14:48 | NUR ---
F/U visit this afternoon. Pt resting in bed upon arrival. Currently on 50 L O2 and 100% FIO2 via AIRVO NC. Pt appears dyspeic as evidenced of inability to speak more than 1 to 2 words. Pt confirms SOB. Pt appears weak and frail. Currently receiving IV nutrition. Pt's 2 sons Danny and Kaleb at bedside. Provided update and reviewed plan of care including plan for thorecentesis. Engaged in therapeutic discussion regarding goals of care and the importance of family discussing with Pt regarding gaols and values. Pt has been reporting to staff that she does not "want to keep doing this". Pt also has been refusing blood sugar checks. Discussed the importance of haviing conversation regarding Pt's wishes for code status. Offered therapeutic listening and answered questions. PPS 30% KPS 30% ADLs 5/6 Pt high risk for readmission.
--- NOTE | 2021-02-16 17:29 | NUR ---
Care Team meeting with family this afternoon. Dr Monique, Primary RN Cassi, and this RN met with family to discuss goals of care. Dr Monique provides update, discusses prognosis and options. Dr Monique answers questions and adresses concerns. Decision was made to move forward with comfort care. This RN remained behind and answered questions. Family tearful and this RN offered emotional support. Family expresses appreciation and reports no other concerns at this time. Dr Monique will place comfort care orders. Palliative Care will remain available for symptom management and supportive visits.
--- NOTE | 2021-02-16 18:29 | NUR ---
PT TRANSFERED TO COMFORT CARE THIS AFTERNOON. PT REMAINS ON AIRVO AT THIS TIME TO BE TITRATED TO NC. PT REPORTS CONCERN THAT MEDICATIONS ARE GOING TO MAKE HER "LOOPY" DESPITE BEING TREATED WITH FENTANYL AND PERCOCET T/O THE DAY TODAY. PT REPORTS THAT JOSHUA HAVE GIVEN HER A LIM WHICH SHE WAS TREATED WITH TYLENOL THAT IS WHAT FAMILY [facility] WORKS FOR HER. FAMILY PLANS TO STAY WITH HER T/O THE NIGHT
--- NOTE | 2021-02-16 21:44 | NUR ---
PATIENT SLEEPING FAMILY ASKED TO WAIT TO GIVE REMERON UNTIL PATIENT WAKES UP, PATIENT IS ON COMFORT CARE, MEDICATION IS LOCKED IN PATIENT MEDICATION DRAWER.
--- NOTE | 2021-02-16 22:44 | NUR ---
PATIENT FAMILY MEMBERS REQUESTED WE NOT WAKE THE PATIENT UP TO GIVE ANY MEDICATION ORALLY AND WANTS UP TO GIVE MEDICATION ONLY THROUGH IV.
--- NOTE | 2021-02-17 00:07 | NUR ---
FAMILY IS REQUESTING THAT WE CURRENTLY NOT REPOSITION THE PATIENT AND LET HER REST.
--- NOTE | 2021-02-17 04:32 | NUR ---
THIS RN TOOK OVER CARE 02/16 1945, PATIENT IS SURROUNDED BY TWO SONS AND PSUEDO DTR INLAW, SHE IS ANXIOUS AND NOT WANTING ANY MORPHINE/ROXANOL GIVES HER A HEADACHE BUT IN EXTREME PAIN, SHE IS REQUESTING NO MEDICATIONS BY MOUTH, FAMILY HAS REQUESTED THAT SHE HAVE NO TURNING AND/OR PERSONAL CARE WHILE SHE IS RESTING AND IS COMFORTABLE. AROUND 0100 PATIENT BECAME VERY PAINFUL AFTER RECEIVING FENTANYL 50MCG AND ATIVAN 1MG IVP, CALLED MD RECEIVED NEW ORDERS TO DC MEDICATIONS THAT ARE NOT COMFORT CARE, FENTANYL 50MCG Q2 HAS BEEN WORKING SO FAR BUT REQUIRING MEDICATION ALMOST EXACTLY AT THE Q2 HOUR, FAMILY IS ALSO CONSIDERING NOT HAVING THE CONTINUOUS POLST OXIMETRY MACHINE IN THE ROOM R/T THE BEEPING AGITATING PATIENT, EXPLAINED THAT IT IS NOT NECESSARY ON COMFORT CARE AND IT IS MORE FOR THE FAMILY THAN THE PATIENT. FAMILY HAS BEEN TEARFUL AND IS VERY DIFFICULT FOR THE SON'S TO SEE THEIR MOM IN PAIN. SHE IS SURROUNDED BY VERY LOVING FAMILY, AND IS RESTING COMFORTABLY CURRENTLY, WILL CONTINUE TO MONITOR UNTIL END OF SHIFT.
--- NOTE | 2021-02-17 09:54 | NUR ---
Comfort Care Visit Pt resting in bed, appears anxious and painful as evidenced by moaning, continuous movement of her head and upper extremities. Pt appears to be experiencing terminal restlessness. Spoke with Primary RN Cassi. Current pain regimen has not been adequately beneficial. Spoke with Dr Monique and reviewed comfort medications. Dr Monique will order IV Dilaudid for pain and IV haloperidol for termianl restlessness. Orders placed and ZACHARY Ye offers medicaions with good effect. This RN provided oral care to Pt for comfort. Offered emotional support for Pt's son Kaleb. Pt appears comfortable at this time with no S/S of distress. Palliative Care will remain available.
--- NOTE | 2021-02-17 17:31 | NUR ---
TOD 1425, FAMILY AT BEDSIDE. PT'S [place] RING WAS REMOVED PER REQUEST OF FAMILY AND GIVEN TO SON "EDUARD" THAT WAS AT BEDSIDE AT THE TIME OF PASSING. PT'S DENTURES, EMANI TABLET, GLASSES, AND T-SHIRT WERE PLACED IN BELONGINGS BAG AND RETURNED TO SON EDUARD WELL. POST-MORTEM CARE WAS PERFORMED, ATTENDS CHANGED, REES REMOVED, POWERGLIDE LEFT IN PLACE. HOME [facility] FAMILY[facility] CHO[facility] WAS CALLED TO RETRIEVE PT.
== END 2021-02-17 19:35 | DRG 871 ==
LOC: ER 10:39 → ERHOLD 15:54 → ICUE 15:54 → PCU 02-12 19:32 → SURS 02-14 11:58 → ICUE 02-14 22:00 → PCU 02-15 12:31
PROVIDERS: Emergency Medicine; Internal Medicine; Nurse Practitioner Acute Care; Surgery; ADMIT Internal Medicine
DX: A41.9 Sepsis, unspecified organism (principal); J96.01 Acute respiratory failure with hypoxia; I50.31 Acute diastolic (congestive) heart failure; K65.1 Peritoneal abscess; K63.1 Perforation of intestine (nontraumatic); J98.11 Atelectasis; C34.90 Malignant neoplasm of unspecified part of unspecified bronchus or lung; Z66 Do not resuscitate; Z51.5 Encounter for palliative care; Z20.822 Contact with and (suspected) exposure to COVID-19; R65.20 Severe sepsis without septic shock; E11.9 Type 2 diabetes mellitus without complications; I48.91 Unspecified atrial fibrillation; E87.6 Hypokalemia; K52.9 Noninfective gastroenteritis and colitis, unspecified; I35.1 Nonrheumatic aortic (valve) insufficiency; Z88.5 Allergy status to narcotic agent; Z79.899 Other long term (current) drug therapy; F17.210 Nicotine dependence, cigarettes, uncomplicated; J98.4 Other disorders of lung; E83.42 Hypomagnesemia
CPT/HCPCS: 0202U; 36415; 71045; 71260; 74177; 76604; 80048; 80053; 80069; 81001; 82947; 83605; 83690; 83735; 83880; 84100; 84132; 84145; 84439; 84443; 84484; 85007; 85025; 85027; 85610; 85730; 87040; 87076; 87086; 87185; 87449; 93005; 93010; 93306; 94667; 94762; 96361; 96374; 96375; 97110; 97162; 99285-25; A9270; J0456; J1170; J1940; J2060; J2270; J2405; J2543; J3010; J3475; J3480; J7030; J7040; J7050; Q9967; U0004